=== PATIENT | male | born 1955 | race African-American/Black ===

== ENCOUNTER 2020-01-13 16:42 | Inpatient (IN) | payer MEDICAID ==
[~2020-01-13] VITALS: Ht 172.7 cm; Wt 72.6 kg
[~2020-01-13 16:42] MED LIST: HYDR-1348 PO
[2020-01-13] MEDS ORDERED: KETOROLAC 30MG/ML VIAL IM STA (18:33)
[2020-01-13 20:00] VITALS: BP 159/94
[2020-01-13] MEDS ORDERED: ENOXAPARIN 60MG/0.6ML SYR SUBCUT ONE (22:15)
[2020-01-13] MEDS ORDERED: VANCOMYCIN 1 G PREMIX 200 ML IV ONE (22:15)
[2020-01-13] MEDS ORDERED: LEVOFLOXACIN 750MG PREMIX 150 ML IV ONE (22:15)
[2020-01-13] MEDS ORDERED: ACETAMINOPHEN 325MG TABLET PO PRN (22:30)
[2020-01-13 22:58] LABS: BASOPHILS % 0.4 % (0.0-2.0); EOSINOPHILS % 0.2 % (0.0-5.0); HEMATOCRIT. 47.4 % (42.0-52.0); HEMOGLOBIN. 16.4 g/dL (14.0-18.0); LYMPHOCYTES % 10.9 % (20.0-50.0); MEAN CORPUSCULAR HEMOGLOBIN 34.6 pg (28.0-32.0); MEAN CORPUSCULAR VOLUME 99.9 fL (80.0-94.0); MEAN PLATELET VOLUME 8.6 fl (7.4-10.4); MONOCYTES % 9.3 % (2.0-8.0); NEUTROPHILS % 79.2 % (40.0-76.0); PLATELET 344 x1000/uL (130-400); RED BLOOD CELL COUNT 4.74 mill/uL (4.7-6.1); RED CELL DISTRIBUTION WIDTH 13.9 % (11.6-14.6)
[2020-01-13 23:06] LABS: CHLORIDE 101 mEq/L (98-107)
[2020-01-13 23:17] LABS: INR 1.1; PARTIAL THROMBOPLASTIN TIME 28.3 sec (23.4-31.0); PROTHROMBIN TIME 11.1 sec (9.6-11.0)
[2020-01-14] VITALS: BP 159/94
[2020-01-14] MEDS ORDERED: APIX5TAB PO (00:20)
[2020-01-14] MEDS ORDERED: ONDANSETRON HCL 4MG/2ML INJ IV PRN (00:30)
[2020-01-14] MEDS: MORPHINE SULFATE 2 MG/ML CPJ (NOT FOR IM USE) IV PRN ×5 (00:44→19:53)
[2020-01-14 04:00] VITALS: BP 157/92
[2020-01-14 08:00] VITALS: BP 164/84
[2020-01-14] MEDS: FAMOTIDINE 20MG TABLET PO SCH ×2 (09:00→21:41)
[2020-01-14] MEDS: APIXABAN 5 MG TABLET PO SCH ×2 (09:00→18:13)
[2020-01-14] MEDS ORDERED: CLONIDINE 0.1MG TABLET PO PRN (10:30)
[2020-01-14] MEDS ORDERED: ACETAMINOPHEN 325MG TABLET PO PRN (10:30)
[2020-01-14] MEDS ORDERED: MAGNESIUM/ALUMINUM HYDROXIDE/SIMETHICONE 30ML UDC PO PRN (10:30)
[2020-01-14 10:31] LABS: HEMATOCRIT. 45.1 % (42.0-52.0); HEMOGLOBIN. 15.3 g/dL (14.0-18.0); MEAN CORPUSCULAR HEMOGLOBIN 33.8 pg (28.0-32.0); MEAN CORPUSCULAR VOLUME 99.5 fL (80.0-94.0); MEAN PLATELET VOLUME 8.1 fl (7.4-10.4); PLATELET 298 x1000/uL (130-400); RED BLOOD CELL COUNT 4.53 mill/uL (4.7-6.1); RED CELL DISTRIBUTION WIDTH 13.6 % (11.6-14.6)
[2020-01-14 10:40] LABS: CHLORIDE 99 mEq/L (98-107)
[2020-01-14 14:14] LABS: PLATELET ESTIMATE NORMAL
[2020-01-14] MEDS: LEVOFLOXACIN 750MG PREMIX 150 ML IV SCH (15:29)
[2020-01-14 16:00] VITALS: BP 150/94
[2020-01-14] MEDS ORDERED: VANCOMYCIN 1250MG in DEXTROSE 5% WATER 250ML IV NR (17:00)
[2020-01-14 20:00] VITALS: BP 142/83
[2020-01-15] VITALS: BP 141/82
[2020-01-15] MEDS: MORPHINE SULFATE 2 MG/ML CPJ (NOT FOR IM USE) IV PRN ×4 (02:00→21:06)
[2020-01-15 04:00] VITALS: BP 145/96
[2020-01-15] MEDS: VANCOMYCIN 750 MG PREMIX 150 ML IV SCH ×3 (04:59→17:12)
[2020-01-15 06:23] LABS: BASOPHILS % 0.1 % (0.0-2.0); EOSINOPHILS % 0.1 % (0.0-5.0); HEMATOCRIT. 43.4 % (42.0-52.0); LYMPHOCYTES % 8.8 % (20.0-50.0); MEAN CORPUSCULAR HEMOGLOBIN 34.4 pg (28.0-32.0); MEAN CORPUSCULAR VOLUME 99.7 fL (80.0-94.0); MEAN PLATELET VOLUME 7.7 fl (7.4-10.4); MONOCYTES % 13.6 % (2.0-8.0); NEUTROPHILS % 77.4 % (40.0-76.0); PLATELET 293 x1000/uL (130-400); RED BLOOD CELL COUNT 4.35 mill/uL (4.7-6.1); RED CELL DISTRIBUTION WIDTH 13.2 % (11.6-14.6)
[2020-01-15 06:39] LABS: CHLORIDE 99 mEq/L (98-107)
[2020-01-15 06:45] LABS: PHOSPHORUS 3.1 mg/dL (2.5-4.9)
[2020-01-15 06:47] LABS: HDL CHOLESTEROL 74 mg/dL (40-59)
[2020-01-15 06:51] LABS: LDL CHOLESTEROL 30 mg/dL (5-100)
[2020-01-15 08:00] VITALS: BP 122/70
[2020-01-15] MEDS: FAMOTIDINE 20MG TABLET PO SCH ×2 (09:06→21:05)
[2020-01-15] MEDS: APIXABAN 5 MG TABLET PO SCH ×2 (09:25→17:16)
[2020-01-15 12:00] VITALS: BP_SYST 130; BP_SYST 149; BP_DIAS 83; BP_DIAS 89; BP_DIAS 95
[2020-01-15] MEDS: LEVOFLOXACIN 750MG PREMIX 150 ML IV SCH (15:29)
[2020-01-15 16:00] VITALS: BP 130/83
[2020-01-15 20:00] VITALS: BP 129/93
[2020-01-16] VITALS: BP 146/89
[2020-01-16] MEDS: VANCOMYCIN 750 MG PREMIX 150 ML IV SCH ×3 (01:28→17:15)
[2020-01-16 04:00] VITALS: BP 137/80
[2020-01-16] MEDS: MORPHINE SULFATE 2 MG/ML CPJ (NOT FOR IM USE) IV PRN (06:45)
[2020-01-16 08:35] LABS: HEMATOCRIT. 41.5 % (42.0-52.0); HEMOGLOBIN. 14.2 g/dL (14.0-18.0); MEAN PLATELET VOLUME 7.3 fl (7.4-10.4); PLATELET 307 x1000/uL (130-400); RED BLOOD CELL COUNT 4.19 mill/uL (4.7-6.1); RED CELL DISTRIBUTION WIDTH 13.3 % (11.6-14.6)
[2020-01-16 08:39] LABS: CHLORIDE 100 mEq/L (98-107)
[2020-01-16] MEDS: APIXABAN 5 MG TABLET PO SCH ×2 (09:57→17:15)
[2020-01-16] MEDS: FAMOTIDINE 20MG TABLET PO SCH ×2 (09:57→20:11)
[2020-01-16 12:00] VITALS: BP 132/79
[2020-01-16 13:10] LABS: PLATELET ESTIMATE NORMAL
[2020-01-16] MEDS: HYDROCODONE/ACETAMINOPHEN 10/325MG TABLET PO PRN ×2 (13:44→20:23)
[2020-01-16 16:00] VITALS: BP_SYST 120
[2020-01-16] MEDS: LEVOFLOXACIN 750MG PREMIX 150 ML IV SCH (17:14)
[2020-01-16 20:00] VITALS: BP 119/78
[2020-01-16] MEDS: DAPTOMYCIN 400 MG in SODIUM CHLORIDE 0.9% 50 ML IV SCH (22:08)
[2020-01-17] VITALS: BP 129/64
[2020-01-17] MEDS: HYDROCODONE/ACETAMINOPHEN 10/325MG TABLET PO PRN ×5 (00:35→22:24)
[2020-01-17 01:25] LABS: *AMPHETAMINES SCREEN URINE NEGATIVE (NEGATIVE); *BARBITURATES SCREEN URINE NEGATIVE (NEGATIVE)
[2020-01-17 01:26] LABS: *BENZODIAZEPINES SCREEN URINE NEGATIVE (NEGATIVE); *COCAINE SCREEN URINE NEGATIVE (NEGATIVE); METHADONE URINE SCREEN NEGATIVE (NEGATIVE); OPIATES URINE SCREEN PRESUMTIVE POSITIVE (NEGATIVE); PHENCYCLIDINE URINE SCREEN NEGATIVE (NEGATIVE)
[2020-01-17 01:27] LABS: CANNABINOID URINE SCREEN NEGATIVE (NEGATIVE)
[2020-01-17 04:00] VITALS: BP 116/59
[2020-01-17 08:00] VITALS: BP 123/65
[2020-01-17] MEDS: FAMOTIDINE 20MG TABLET PO SCH ×2 (08:53→21:11)
[2020-01-17] MEDS: APIXABAN 5 MG TABLET PO SCH ×2 (08:53→16:47)
[2020-01-17 12:00] VITALS: BP 126/78
[2020-01-17 16:00] VITALS: BP 128/72
[2020-01-17] MEDS: LEVOFLOXACIN 750MG PREMIX 150 ML IV SCH (16:00)
[2020-01-17 20:00] VITALS: BP 141/78
[2020-01-17] MEDS: DAPTOMYCIN 400 MG in SODIUM CHLORIDE 0.9% 50 ML IV SCH (21:11)
[2020-01-18] VITALS: BP 134/85
[2020-01-18 04:00] VITALS: BP 121/69
[2020-01-18] MEDS: HYDROCODONE/ACETAMINOPHEN 10/325MG TABLET PO PRN ×2 (06:13→14:05)
[2020-01-18] MEDS ORDERED: LIDOCAINE HCL 1% 20ML VIAL (Pyxis) INJ ONE (07:42)
[2020-01-18 07:48] VITALS: BP 142/82
[2020-01-18] MEDS: APIXABAN 5 MG TABLET PO SCH ×2 (09:23→16:21)
[2020-01-18] MEDS: FAMOTIDINE 20MG TABLET PO SCH (09:23)
[2020-01-18 12:00] VITALS: BP 115/76
[2020-01-18 13:54] VITALS: BP 122/86
[2020-01-18 16:00] VITALS: BP 150/79
[2020-01-18] MEDS: LEVOFLOXACIN 750MG PREMIX 150 ML IV SCH (16:00)
== END 2020-01-18 18:55 | DRG 721 ==
LOC: ER 16:42 → 8WST 22:19 → ENRESERV 22:58
PROVIDERS: ADMIT Internal Medicine; ATTEND Internal Medicine
PROC: 02HV33Z Insertion of Infusion Device into Superior Vena Cava, Percutaneous Approach (ICD-10-PCS; principal; 2020-01-14)
PROC: B5181ZA Fluoroscopy of Superior Vena Cava using Low Osmolar Contrast, Guidance (ICD-10-PCS; 2020-01-14)
PROC: B548ZZA Ultrasonography of Superior Vena Cava, Guidance (ICD-10-PCS; 2020-01-14)
DX: T85.79XA Infection and inflammatory reaction due to other internal prosthetic devices, implants and grafts, initial encounter (principal); A41.9 Sepsis, unspecified organism; I82.402 Acute embolism and thrombosis of unspecified deep veins of left lower extremity; Z91.14 Patient's other noncompliance with medication regimen; I10 Essential (primary) hypertension; E87.1 Hypo-osmolality and hyponatremia; E87.5 Hyperkalemia; J44.9 Chronic obstructive pulmonary disease, unspecified; L03.116 Cellulitis of left lower limb; F10.10 Alcohol abuse, uncomplicated; Y83.8 Other surgical procedures as the cause of abnormal reaction of the patient, or of later complication, without mention of misadventure at the time of the procedure; M85.80 Other specified disorders of bone density and structure, unspecified site; Z79.01 Long term (current) use of anticoagulants; Z86.718 Personal history of other venous thrombosis and embolism; Z88.0 Allergy status to penicillin; Z91.19 Patient's noncompliance with other medical treatment and regimen; Z79.899 Other long term (current) drug therapy; Y92.89 Other specified places as the place of occurrence of the external cause
CPT/HCPCS: 36415; 36573; 71045; 73630; 73700; 80048; 80053; 80061; 80202; 80305; 83605; 83735; 84100; 84145; 84443; 85025; 85651; 86140; 87077; 93005; 93306; 93971; 97162; 97166; 97530; 99285; C1725; J0878; J1885; J1956; J2270; J3370; J3490; J7040; J7060

== ENCOUNTER 2020-12-12 20:20 | Inpatient (IN) | payer MEDICAID ==
[~2020-12-12] VITALS: Ht 182.9 cm; Wt 85.0 kg
[~2020-12-12 20:20] MED LIST changes: +APIX5TAB PO
[2020-12-12] MEDS ORDERED: SODIUM CHLORIDE 0.9% 1000ML BAG (SEPSIS BOLUS) IV ONE (23:00)
[2020-12-13 00:53] LABS: BASOPHILS % 0.1 % (0.0-2.0); EOSINOPHILS % 0.4 % (0.0-5.0); HEMATOCRIT. 44.1 % (42.0-52.0); HEMOGLOBIN. 15.4 g/dL (14.0-18.0); LYMPHOCYTES % 9.5 % (20.0-50.0); MEAN CORPUSCULAR HEMOGLOBIN 32.5 pg (28.0-32.0); MEAN CORPUSCULAR VOLUME 93.2 fL (80.0-94.0); MEAN PLATELET VOLUME 7.4 fl (7.4-10.4); PLATELET 545 x1000/uL (130-400); RED BLOOD CELL COUNT 4.74 mill/uL (4.7-6.1); RED CELL DISTRIBUTION WIDTH 13.9 % (11.6-14.6)
[2020-12-13 01:11] LABS: CHLORIDE 95 mEq/L (98-107)
[2020-12-13 01:14] LABS: ETHANOL BLOOD < 10 mg/dL
[2020-12-13 01:17] LABS: *BARBITURATES SCREEN URINE NEGATIVE (NEGATIVE); *BENZODIAZEPINES SCREEN URINE NEGATIVE (NEGATIVE)
[2020-12-13 01:19] LABS: *AMPHETAMINES SCREEN URINE NEGATIVE (NEGATIVE); *COCAINE SCREEN URINE NEGATIVE (NEGATIVE); CANNABINOID URINE SCREEN NEGATIVE (NEGATIVE); METHADONE URINE SCREEN NEGATIVE (NEGATIVE); OPIATES URINE SCREEN NEGATIVE (NEGATIVE); PHENCYCLIDINE URINE SCREEN NEGATIVE (NEGATIVE)
[2020-12-13 01:40] LABS: INR 1.1; PROTHROMBIN TIME 11.7 sec (9.6-11.0)
[2020-12-13] MEDS ORDERED: VANCOMYCIN 1 G PREMIX 200 ML IV SCH (02:00)
[2020-12-13] MEDS ORDERED: AZTREONAM 1 G in DEXTROSE 5% WATER 50 ML IV SCH (02:00)
[2020-12-13 02:18] LABS: CLARITY URINE CLEAR (CLEAR); COLOR URINE YELLOW (YELLOW); KETONES URINE NEGATIVE (NEGATIVE); NITRITE URINE NEGATIVE (NEGATIVE); OCCULT BLOOD URINE 1+ (NEGATIVE); PROTEIN URINE NEGATIVE (NEGATIVE); SPECIFIC GRAVITY URINE 1.006 (1.005-1.030); UROBILINOGEN URINE 0.2 E.U./dL (0.2-1.0)
[2020-12-13 02:19] LABS: LEUKOCYTE ESTERASE URINE NEGATIVE (NEGATIVE)
[2020-12-13] MEDS ORDERED: ONDANSETRON HCL 4MG/2ML INJ IV PRN (08:30)
[2020-12-13] MEDS ORDERED: IPRATROPIUM/ALBUTEROL 0.5-3(2.5)MG/3ML NEB HHN PRN (08:30)
[2020-12-13] MEDS ORDERED: NALOXONE HCL 0.4MG/ML VIAL IV PRN (08:30)
[2020-12-13] MEDS: ENOXAPARIN 80MG/0.8ML SYR SUBCUT SCH ×2 (10:01→21:41)
[2020-12-13] MEDS: LEVOFLOXACIN 500MG PREMIX 100 ML IV SCH (10:01)
[2020-12-13] MEDS: HYDROCODONE/ACETAMINOPHEN 10/325MG TABLET PO PRN ×2 (10:04→21:42)
[2020-12-13] MEDS: VANCOMYCIN 1 G PREMIX 200 ML IV SCH ×2 (11:00→18:47)
[2020-12-13 12:13] VITALS: BP 115/75
[2020-12-13] MEDS ORDERED: LIDOCAINE HCL 2% JELLY 5ML TOP NR (14:30)
[2020-12-13] MEDS ORDERED: LIDOCAINE HCL 1% 30ML VIAL (10MG/ML) INFIL NR (14:30)
[2020-12-13 16:00] VITALS: BP 139/54
[2020-12-13 20:00] VITALS: BP 161/92
[2020-12-14] VITALS: BP 163/93
[2020-12-14] MEDS: VANCOMYCIN 1 G PREMIX 200 ML IV SCH ×3 (03:15→18:15)
[2020-12-14] MEDS: HYDROCODONE/ACETAMINOPHEN 10/325MG TABLET PO PRN ×4 (03:51→22:29)
[2020-12-14 04:00] VITALS: BP 169/99
[2020-12-14 07:04] LABS: BASOPHILS % 0.3 % (0.0-2.0); EOSINOPHILS % 0.4 % (0.0-5.0); HEMATOCRIT. 40.1 % (42.0-52.0); HEMOGLOBIN. 13.6 g/dL (14.0-18.0); LYMPHOCYTES % 13.2 % (20.0-50.0); MEAN CORPUSCULAR HEMOGLOBIN 32.5 pg (28.0-32.0); MEAN CORPUSCULAR VOLUME 95.5 fL (80.0-94.0); MEAN PLATELET VOLUME 7.1 fl (7.4-10.4); MONOCYTES % 10.1 % (2.0-8.0); PLATELET 470 x1000/uL (130-400); RED CELL DISTRIBUTION WIDTH 13.7 % (11.6-14.6)
[2020-12-14 07:06] LABS: CHLORIDE 99 mEq/L (98-107)
[2020-12-14 08:00] VITALS: BP 159/103
[2020-12-14] MEDS ORDERED: IOHEXOL-300 100 ML BOTTLE ONE (09:50)
[2020-12-14] MEDS: AMLODIPINE 10MG TABLET PO SCH (12:08)
[2020-12-14] MEDS: ENOXAPARIN 80MG/0.8ML SYR SUBCUT SCH ×2 (12:09→21:34)
[2020-12-14] MEDS: LEVOFLOXACIN 500MG PREMIX 100 ML IV SCH (12:09)
[2020-12-14 12:22] VITALS: BP 157/90
[2020-12-14 16:00] VITALS: BP 157/89
[2020-12-14 20:00] VITALS: BP 151/82
[2020-12-15] VITALS (8 sets, daily range): BP systolic 139–181; BP diastolic 66–96
[2020-12-15 01:00] LABS: CHLORIDE 98 mEq/L (98-107)
[2020-12-15 01:08] LABS: VANCOMYCIN TROUGH 19.3 ug/mL (5.0-10.0)
[2020-12-15] MEDS: VANCOMYCIN 1 G PREMIX 200 ML IV SCH (04:01)
[2020-12-15] MEDS: HYDROCODONE/ACETAMINOPHEN 10/325MG TABLET PO PRN ×4 (04:22→22:51)
[2020-12-15 06:07] LABS: BASOPHILS % 0.3 % (0.0-2.0); EOSINOPHILS % 1.3 % (0.0-5.0); HEMATOCRIT. 40.1 % (42.0-52.0); HEMOGLOBIN. 13.9 g/dL (14.0-18.0); LYMPHOCYTES % 16.5 % (20.0-50.0); MEAN CORPUSCULAR HEMOGLOBIN 32.8 pg (28.0-32.0); MEAN PLATELET VOLUME 7.3 fl (7.4-10.4); MONOCYTES % 10.4 % (2.0-8.0); NEUTROPHILS % 71.5 % (40.0-76.0); PLATELET 498 x1000/uL (130-400); RED BLOOD CELL COUNT 4.23 mill/uL (4.7-6.1); RED CELL DISTRIBUTION WIDTH 13.8 % (11.6-14.6)
[2020-12-15] MEDS: SODIUM HYPOCHLORITE 0.125% 473ML SOLUTION TOP SCH ×3 (09:00→10:33)
[2020-12-15] MEDS: ENOXAPARIN 80MG/0.8ML SYR SUBCUT SCH ×2 (10:25→22:46)
[2020-12-15] MEDS: AMLODIPINE 10MG TABLET PO SCH (10:26)
[2020-12-15] MEDS: LEVOFLOXACIN 500MG PREMIX 100 ML IV SCH (10:26)
[2020-12-15] MEDS: VANCOMYCIN 750 MG PREMIX 150 ML IV SCH ×2 (14:25→22:46)
[2020-12-16] VITALS (7 sets, daily range): BP systolic 137–165; BP diastolic 81–103
[2020-12-16] MEDS: HYDROCODONE/ACETAMINOPHEN 10/325MG TABLET PO PRN ×3 (05:46→18:32)
[2020-12-16] MEDS: VANCOMYCIN 750 MG PREMIX 150 ML IV SCH (05:46)
[2020-12-16] MEDS: ENOXAPARIN 80MG/0.8ML SYR SUBCUT SCH ×2 (08:58→21:00)
[2020-12-16] MEDS: AMLODIPINE 10MG TABLET PO SCH (08:58)
[2020-12-16] MEDS: SODIUM HYPOCHLORITE 0.125% 473ML SOLUTION TOP SCH (08:59)
[2020-12-16] MEDS: LEVOFLOXACIN 500MG PREMIX 100 ML IV SCH (11:05)
[2020-12-16] MEDS: VANCOMYCIN 1 G PREMIX 200 ML IV SCH (18:32)
[2020-12-17] VITALS: BP 161/96
[2020-12-17] MEDS: HYDROCODONE/ACETAMINOPHEN 10/325MG TABLET PO PRN ×2 (00:14→10:59)
[2020-12-17 00:30] VITALS: BP 150/78
[2020-12-17 04:00] VITALS: BP 135/90
[2020-12-17] MEDS: VANCOMYCIN 1 G PREMIX 200 ML IV SCH (06:32)
[2020-12-17 08:00] VITALS: BP 121/77
[2020-12-17] MEDS: ENOXAPARIN 80MG/0.8ML SYR SUBCUT SCH (08:05)
[2020-12-17] MEDS: AMLODIPINE 10MG TABLET PO SCH (08:06)
[2020-12-17] MEDS ORDERED: APIX5TAB MT (10:12)
[2020-12-17] MEDS ORDERED: AMLO10TA80 MT (10:13)
[2020-12-17] MEDS: SODIUM HYPOCHLORITE 0.125% 473ML SOLUTION TOP SCH (11:09)
[2020-12-17] MEDS: LEVOFLOXACIN 500MG PREMIX 100 ML IV SCH (11:09)
[2020-12-17 12:00] VITALS: BP 144/96
[2020-12-17 12:15] VITALS: BP 121/77
[2020-12-17] MEDS ORDERED: SULF-13 MT (16:34)
== END 2020-12-17 18:11 | disposition home or self-care (01) | DRG 349 ==
LOC: ER 20:20 → 8WST 12-13 03:43 → EDBEDREQSVC 12-13 03:46 → EDBEDREQTM 12-13 03:46 → EDBEDREQDT 12-13 03:46 → EDBEDREQ 12-13 03:46 → ENRESERV 12-13 04:49 → 8WST 12-13 06:58 → 6EST 12-15 16:42
PROVIDERS: ADMIT Internal Medicine; ATTEND Internal Medicine
PROC: 0JBR0ZZ Excision of Left Foot Subcutaneous Tissue and Fascia, Open Approach (ICD-10-PCS; principal; 2020-12-13)
DX: T84.623A Infection and inflammatory reaction due to internal fixation device of left tibia, initial encounter (principal); A41.9 Sepsis, unspecified organism; E43 Unspecified severe protein-calorie malnutrition; E87.1 Hypo-osmolality and hyponatremia; I82.512 Chronic embolism and thrombosis of left femoral vein; E87.8 Other disorders of electrolyte and fluid balance, not elsewhere classified; L03.116 Cellulitis of left lower limb; I16.0 Hypertensive urgency; M85.872 Other specified disorders of bone density and structure, left ankle and foot; R59.0 Localized enlarged lymph nodes; Y83.1 Surgical operation with implant of artificial internal device as the cause of abnormal reaction of the patient, or of later complication, without mention of misadventure at the time of the procedure; R26.89 Other abnormalities of gait and mobility; I70.202 Unspecified atherosclerosis of native arteries of extremities, left leg; Z20.822 Contact with and (suspected) exposure to COVID-19; Z72.0 Tobacco use; I10 Essential (primary) hypertension; Z91.19 Patient's noncompliance with other medical treatment and regimen; Z79.01 Long term (current) use of anticoagulants; Z88.0 Allergy status to penicillin; Z82.49 Family history of ischemic heart disease and other diseases of the circulatory system; Y92.89 Other specified places as the place of occurrence of the external cause; Z98.1 Arthrodesis status; Z71.6 Tobacco abuse counseling
CPT/HCPCS: 36415; 71045; 73630; 73701; 80048; 80053; 80202; 80305; 80320; 81003; 83605; 84145; 84484; 85025; 85651; 86140; 87070; 87075; 87077; 87186; 87426; 93005; 93923; 93971; 97162; 99291; C1893; J1650; J1956; J3370; J3490; J7030; J7060; Q9967; G0480